=== PATIENT | female | born 1990 | race Caucasian/White ===

== ENCOUNTER 2017-08-23 14:35 | Emergency (ER) | payer OTHER ==
[~2017-08-23] VITALS: Ht 170.2 cm; Wt 112.9 kg
[2017-08-23 14:41] VITALS: BP 133/87
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
--- NOTE | 2017-08-23 14:46 | NUR ---
TO ER BED 10
[2017-08-23] MEDS ORDERED: KETOROLAC 30 MG/ML VIAL IM ONE (15:20)
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
[2017-08-23 16:10] VITALS: BP 130/82
--- NOTE | 2017-08-23 16:10 | NUR ---
Patient discharged with v/s stable. Written and verbal after care instructions given and explained. Patient alert, oriented and verbalized understanding of instructions. Ambulatory with steady gait. All questions addressed prior to discharge. ID band removed. Patient advised to follow up with PMD. Rx of TYLENOL W / CODEINE , NAPROSYN given. Patient educated on indication of medication including possible reaction and side effects. Opportunity to ask questions provided and answered.
== END 2017-08-23 16:10 | disposition home or self-care (01) ==
LOC: MED 14:35
DX: S83.91XA Sprain of unspecified site of right knee, initial encounter (principal); X58.XXXA Exposure to other specified factors, initial encounter; Y93.89 Activity, other specified; Y92.89 Other specified places as the place of occurrence of the external cause; Y99.8 Other external cause status
CPT/HCPCS: 29505; 73562; 81025; 96372; 99284; J1885; Q0092

== ENCOUNTER 2018-02-07 10:40 | Emergency (ER) | payer OTHER ==
[~2018-02-07] VITALS: Ht 170.2 cm; Wt 108.2 kg
[2018-02-07 11:30] VITALS: BP 137/95
[2018-02-07] MEDS ORDERED: IBUPROFEN 800 MG TAB PO ONE (13:10)
[2018-02-07 13:17] VITALS: BP 117/51
== END 2018-02-07 13:18 | disposition home or self-care (01) ==
LOC: MED 10:40
DX: S06.0X0A Concussion without loss of consciousness, initial encounter (principal); W18.2XXA Fall in (into) shower or empty bathtub, initial encounter; Y93.E5 Activity, floor mopping and cleaning; Y92.89 Other specified places as the place of occurrence of the external cause; Y99.8 Other external cause status
CPT/HCPCS: 70450; 81002; 81025; 99284

== ENCOUNTER 2018-09-18 07:37 | Emergency (ER) | payer OTHER ==
[~2018-09-18] VITALS: Ht 170.2 cm; Wt 110.4 kg
[2018-09-18 07:54] VITALS: BP 137/85
--- NOTE | 2018-09-18 08:01 | NUR ---
PT TO ER BED 8
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
[2018-09-18 09:00] VITALS: BP 137/85
--- NOTE | 2018-09-18 09:01 | NUR ---
Patient discharged with v/s stable. Written and verbal after care instructions given and explained. Patient alert, oriented and verbalized understanding of instructions. Ambulatory with steady gait. All questions addressed prior to discharge. ID band removed. Patient advised to follow up with PMD. Rx of Azythromycin and Motrin given. Patient educated on indication of medication including possible reaction and side effects. Opportunity to ask questions provided and answered.
== END 2018-09-18 09:01 | disposition home or self-care (01) ==
LOC: MED 07:37
DX: J02.8 Acute pharyngitis due to other specified organisms (principal); B96.89 Other specified bacterial agents as the cause of diseases classified elsewhere
CPT/HCPCS: 99283

== ENCOUNTER 2021-09-26 07:00 | Emergency (ER) | payer OTHER ==
[~2021-09-26] VITALS: Ht 170.2 cm; Wt 104.3 kg
[2021-09-26 07:07] VITALS: BP 120/72
--- NOTE | 2021-09-26 07:08 | NUR ---
PT AMBULATED TO BED 05.
--- NOTE | 2021-09-26 07:16 | NUR ---
PT WALKED TO BED 5 STEADY GAIT.
--- NOTE | 2021-09-26 07:21 | NUR ---
ER AT BEDSIDE
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
[2021-09-26] MEDS ORDERED: AMOX1TAB8 PO (07:27)
[2021-09-26] MEDS ORDERED: NAPR-54 PO (07:27)
[2021-09-26 07:37] VITALS: BP 120/72
--- NOTE | 2021-09-26 07:37 | NUR ---
The patient's care was reviewed and supervised by Devendra Cee RN.
--- NOTE | 2021-09-26 07:37 | NUR ---
Patient discharged with v/s stable. Written and verbal after care instructions given and explained. Patient alert, oriented and verbalized understanding of instructions. Ambulatory with steady gait. All questions addressed prior to discharge. ID band removed. Patient advised to follow up with PMD. Rx of AMOXICILLIN NAPROXEN given. Patient educated on indication of medication including possible reaction and side effects. Opportunity to ask questions provided and answered.
== END 2021-09-26 07:37 | disposition home or self-care (01) ==
LOC: MED 07:00
DX: S81.851A Open bite, right lower leg, initial encounter (principal); W55.01XA Bitten by cat, initial encounter; Y93.89 Activity, other specified; Y92.89 Other specified places as the place of occurrence of the external cause; Y99.8 Other external cause status
CPT/HCPCS: 90471; 90715; 99283

== ENCOUNTER 2021-12-26 16:07 | Emergency (ER) | payer OTHER ==
[~2021-12-26] VITALS: Ht 170.2 cm; Wt 107.0 kg
[~2021-12-26 16:07] MED LIST: AMOX1TAB8 PO; NAPR-54 PO
[2021-12-26 16:18] VITALS: BP 127/75
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
--- NOTE | 2021-12-26 17:18 | NUR ---
name called, no answer at this time
--- NOTE | 2021-12-26 17:18 | NUR ---
pt dx without paperwork
== END 2021-12-26 17:18 | disposition home or self-care (01) ==
LOC: MED 16:07
DX: S39.012A Strain of muscle, fascia and tendon of lower back, initial encounter (principal); M25.512 Pain in left shoulder; Z79.899 Other long term (current) drug therapy; V89.2XXA Person injured in unspecified motor-vehicle accident, traffic, initial encounter; Y93.89 Activity, other specified; Y92.89 Other specified places as the place of occurrence of the external cause; Y99.8 Other external cause status
CPT/HCPCS: 99281